=== PATIENT | female | born 1980 | race Caucasian/White ===

== ENCOUNTER 2021-08-08 13:10 | Outpatient (CLI) | payer BC, SELFPAY ==
[2021-08-08 13:56] LABS: Basophils Percent Auto 0.6 % (0.2-1.2); Eosinophils Absolute Auto 0.1 K/mm3 (0-0.3); Eosinophils Percent Auto 1.4 % (0-4.4); Hematocrit 43.7 % (37.0-47.0); Hemoglobin 14.1 g/dL (12.0-15.0); Immature Granulocyte Absolute 0.02 K/mm3 (0.00-0.031); Immature Granulocyte Percent A 0.3 % (0-0.5); Lymphocytes Absolute Auto 2.16 K/mm3 (0.9-3.2); Lymphocytes Percent Auto 34.6 % (18.3-44.2); Mean Corpuscular HGB Conc 32.3 g/dl (32-36); Mean Corpuscular Hemoglobin 31.6 pg (26-34); Mean Platelet Volume 9.7 fl (7.4-10.4); Monocytes Absolute Auto 0.4 K/mm3 (0.1-0.6); Monocytes Percent Auto 6.3 % (2.6-8.5); Neutrophils Absolute Auto 3.5 K/mm3 (1.3-6.7); Neutrophils Percent Auto 56.8 % (45.5-73.1); Platelet Count Result 258 k/mm3 (150-375); Red Blood Count 4.46 M/mm3 (4.2-5.4); Red Cell Distribution Width 12.5 % (11.5-14.5); White Blood Count 6.2 K/mm3 (4.5-10.0)
== END 2021-08-08 13:11 | disposition home or self-care (01) ==
LOC: ANHLAB 13:14
PROVIDERS: Visit Provider Obstetrics & Gynecology Gynecologic Oncology
DX: N92.0 Excessive and frequent menstruation with regular cycle (principal)
CPT/HCPCS: 36415; 85025; 86850; 86900; 86901

== ENCOUNTER 2021-08-14 00:11 | Day surgery (SDC) | payer BC, SELFPAY ==
[2021-08-07 10:58] VITALS: BMI 29.2
--- NOTE | 2021-08-07 11:05 | PC.NURSE ---
Report to the Outpatient Waiting Room, entrance under the green pavilion located off [facility], at time ___0600____ on date _08/14/21 . OR Time: __729 . - You and your visitor will be asked a series of questions to screen for COVID 19 for your protection. - Only one visitor is allowed at this time. - The patient visitor is requested to leave or wait in car when not with patient. - A mask is required within the hospital. Patients may have clear liquids (water, carbonated beverages, clear teas, apple juice) until 3 hours prior to surgery with a maximum of 20 ounces. - No food from midnight until time of surgery - Infants may have breast milk until 4 hours before surgery, formula 6 hours prior to surgery. - Children will be allowed to drink immediately following surgery. If applicable, please bring a bottle or sippy cup to assist with drinking. Juice, water, soda, and popsicles are readily available. For infants on formula, please bring formula the day of surgery. Pacifiers are allowed. Take the following medications with a SIP of water the morning of surgery: NONE Medications to discontinue per physician VIT D3 Date to take last dose___08/10/21 Please no make-up, nail hungarian, hairspray, perfume, deodorant, or body powder the day of surgery. No jewelry (including any body piercings) or valuables the day of surgery, leave them at home. Please take a shower or bath the night before, or the morning of, surgery with an antibacterial soap. Wear comfortable, loose fitting clothing. Children are encouraged to wear pajamas. - Jewelry must be removed prior to entering the operating room. Rings and piercings that are not removed may be cut off. - The hospital will not accept responsibility for valuables. - Please leave all valuables, including medications, at home the day of surgery. If you are going home after surgery, a licensed driver retraining instructor must drive you home. - NO public transportation without another adult. - We recommend that an adult stay with you for 24 hours following discharge. - We also recommend that you do not drive, make important decision, drink alcoholic beverages, or take any drugs that were not prescribed by your health care provider for at least 24 hours after your discharge time. For Pediatric surgeries, we recommend two adults accompany the child home (only one inside the building at this time). Follow any additional instructions given to you from your surgeon. If you or anyone in your household have experienced Covid symptoms in the past week, please notify your surgeon or the nurse liaison at the phone number below for possible testing. Telephone instructions given to _PATIENT___and asked if any additional questions and then verbalized understanding. Patient advised to call surgeon office or pre surgery nurse liaison [phone] if any additional questions.
--- NOTE | 2021-08-10 14:03 | WPDANESEPPF ---
Anes - Initial Pre Proc Eval Procedure: Operation Date: 08/14/21 07:30 Proposed Procedures p Diagnostic Laparoscopy, with Bilateral Salpingectomy, - Alondra Reyes DO s Hysteroscopy Dilation and Curettage with Removal of Mirena Intrauterine Device, Novasure Endometrial Ablation - Alondra Reyes DO Date/Time: 08/10/21 14:03 Surgeon: Alondra Reyes DO Pre Op Diagnosis: desires sterilization, abnormal uterine bleeding Patient Data Age: 41 Gender: F Height: 1.68 m Weight: 82 kg Allergies Allergy/AdvReac Type Severity Reaction Status Date / Time latex Allergy Mild Rash Verified 08/14/21 06:15 Home Medications Medication Instructions Recorded Confirmed Type cholecalciferol (vitamin D3) 50 50 mcg PO HS 08/07/21 08/14/21 History mcg (2,000 unit) tablet (Vitamin D3) fexofenadine 180 mg tablet 180 mg PO DAILY 08/07/21 08/14/21 History montelukast 10 mg tablet 1 tablet PO HS 08/07/21 08/14/21 History sertraline 100 mg tablet 1 tablet PO HS 08/07/21 08/14/21 History Patient hx anesthesia problems: none Family hx anesthesia problems: none Results Review: All pre-operative results and documents have been reviewed as part of the pre-operative evaluation. [facility] Past Medical History Medical History (Updated 08/14/21 @ 07:12 by Alondra Reyes DO) Anxiety Social History Social History Smoking status: Never smoker Alcohol intake: current Drinks per week: 3 Substance use: never Living arrangements: alone Anes - Eval Final PreProcedure Day of Procedure 08/10/21 14:03 Patient weight: overweight Heart: regular rate and rhythm Lungs: clear to auscultation Airway: Mallampati scale class II Neurological: alert and oriented Last oral intake: >/= 8 hours ASA classification: II Emergent: no Anesthetic plan: proceed Anesthesia type and monitoring: general GIVS and standard monitoring Results Review: All pre-operative results and documents have been reviewed as part of the pre-operative evaluation. Informed Consent: The patient's anesthetic plan and its attendant risks and benefits were discussed with the patient/family/POA. Questions were solicited and answers provided to the satisfaction of the patient/family/POA.
[2021-08-14] VITALS (10 sets, daily range): BP systolic 110–123; BP diastolic 62–78; PULSE 52–85; RESP 8–16; TEMP 36.1–36.8; O2SAT 96–100
[2021-08-14] MEDS: GABAPENTIN 300 MG CAPSULE PO (06:19)
[2021-08-14] MEDS: ACETAMINOPHEN 500 MG TABLET 1000 MG PO (06:19)
[2021-08-14] MEDS: LACTATED RINGERS 1,000 ML 30 ML IV CONT ×2 (06:42→08:48)
--- NOTE | 2021-08-14 07:10 | PM.IMHP ---
H&P: HPI History of Present Illness Date/Time: 08/14/21 07:10 Chief Complaint: I'm here for my surgery Narrative: Patient presents with heavy, regular periods, undesired fertility. Review of Systems Review of Systems: All systems reviewed & are unremarkable except as noted in HPI and below PMFSH Past Medical History Medical History (Updated 08/14/21 @ 07:12 by Alondra Reyes DO) Anxiety Social History Social History Smoking status: Never smoker Alcohol intake: current Drinks per week: 3 Substance use: never Living arrangements: alone Meds Home Medications and Allergies Home Medications Medication Instructions Recorded Confirmed Type cholecalciferol (vitamin D3) 50 50 mcg PO HS 08/07/21 08/14/21 History mcg (2,000 unit) tablet (Vitamin D3) fexofenadine 180 mg tablet 180 mg PO DAILY 08/07/21 08/14/21 History montelukast 10 mg tablet 1 tablet PO HS 08/07/21 08/14/21 History sertraline 100 mg tablet 1 tablet PO HS 08/07/21 08/14/21 History Allergies Allergy/AdvReac Type Severity Reaction Status Date / Time latex Allergy Mild Rash Verified 08/14/21 06:15 Vital Signs Vital Signs - 24 hr 08/14/21 06:56 Temperature 36.8 C Pulse Rate 68 Respiratory Rate 16 Blood Pressure 120/78 Pulse Oximetry 100 Oxygen Delivery Room Air Exam Const: General: comfortable and no acute distress Resp: Effort & Inspection: normal respiratory effort Auscultation: clear to auscultation bilaterally Cardio: Rate: regular rate Rhythm: regular rhythm GI: GI Palp: Yes Soft to palpation Auscultation: normal bowel sounds Neuro: General: gait normal Speech: normal speech Motor exam (neuro): 5/5 motor strength present throughout Extrem: General: normal to inspection Psych: Mental Status: mental status grossly normal Affect: normal affect Assessment and Plan Assessment and plan (1) Sterilization: Code(s): Z30.2 - Encounter for sterilization Status: Acute (2) Heavy menstrual bleeding: Code(s): N92.0 - Excessive and frequent menstruation with regular cycle Status: Acute Plan Diagnostic laparoscopy, bilateral salpingectomy, Mirena removal. Hysteroscopy, D&C, Novasure ablation
--- NOTE | 2021-08-14 07:13 | WPDHPUPDATE1 ---
History and Physical Update Update Date/Time: 08/14/21 07:13 History and Physical has been reviewed, including an updated exam of the patient. There are NO changes in the patient's condition. Risks, benefits, and alternatives have been discussed and questions answered. Patient agrees to proceed with procedure.
[2021-08-14] MEDS: BUPIVACAINE HCL 0.25% PF 30 ML VIAL INFILTRATE (08:13)
--- NOTE | 2021-08-14 08:44 | W.PM.PROC2 ---
Procedure Note - Detailed Date of Procedure 08/14/21 Pre-op Diagnosis desires sterilization, abnormal uterine bleeding Post-op Diagnosis Same Procedure Performed Diagnostic laparoscopy, bilateral salpingectomy, hysteroscopy, D&C, Mirena removal. Surgeon Alondra Reyes, DO Anesthesia General Indications Undesired fertility, abnormal uterine bleeding Findings Normal-appearing vulva and vaginal canal. Large cervix. Uterus sounded to 8.5 cm. The endometrial cavity was slightly retroverted and deviated to the patient's right. Internally, the left ovary contained a large simple cyst. The right ovary was normal. The uterus and fallopian tubes appeared unremarkable. The liver, gallbladder, and bowel were grossly unremarkable. Description of Procedure Patient was taken to the operating room where she was placed under general anesthesia. The patient was prepped and draped in the usual fashion in a dorsal lithotomy position. Preoperative antibiotics were indicated. A time-out was performed. The skin below the umbilicus was grasped with 2 penetrating towel clamps and the area was injected with local. A small incision was made and a Veress needle was introduced. The saline water drop test was performed to confirm intraperitoneal placement. Although positive once insufflation started, the insufflation pressure was noted to be too high so the Veress needle was removed. And then proceeded with direct entry under visualization with a 5 mm Optiview trocar. Once abdominal cavity access was gained, the CO2 insufflation was restarted and the abdomen was brought to a filling pressure of 15 mmHg. Patient was then placed in steep Trendelenburg position and the pelvic organs were visualized. CO2 insufflation was dropped to 12 mmHg. The pelvis and abdomen were surveyed as mentioned above. The left tube was elevated and was cauterized and transected off using the LigaSure. The specimen was handed off through the conference assistant port. In an identical fashion the right tube was elevated and cauterized and transected off using LigaSure. It was also passed off through the conference assistant port. During manipulation of the left tube has a small corpus luteum cyst was ruptured and there was some superficial bleeding noted. This was controlled with cautery and pressure. Reinspection of all surgical pedicles including the corpus luteum on the left ovary showed good hemostasis. All fluid and blood were suctioned out of the pelvic cavity, the CO2 was allowed to escape and the trocars were removed. Attention was then turned to the hysteroscopy portion of the procedure. The cervix was visualized with a speculum and the strings of the IUD were grasped. The IUD was removed intact. The posterior lip of the cervix was then grasped with a single-tooth tenaculum. The uterus was sequentially dilated to accommodate the hysteroscope. The scope was introduced and survey of the cavity revealed normal shaped endometrium, both tubal ostia were visualized. Measurements of the uterus and cervix were taken. The hysteroscope was then removed. Thorough curettage of the entire endometrial cavity was performed and the specimen was handed off to pathology. Uterus length 4.5 cm, cervix 4 cm. Width 2.5cm. The NovaSure device was then introduced and was activated for 100 seconds. The device was then retracted into the sleeve and removed from the uterus. The vagina was wiped cleaned of fluid and blood. The tenaculum was removed and the puncture sites noted to be hemostatic. The speculum was removed. The patient was taken out of Trendelenburg position and she was extubated. She was taken to the recovery room in stable condition. All instrument and sponge counts were correct at the conclusion of the procedure. Estimated Blood Loss 10 IV Fluids 1,300 Drains No Packing No Pathology Yes Complications No immediate complications Condition Stable Disposition PACU
[2021-08-14] MEDS: fentaNYL CITRATE INJ (*CRX) 100 MCG/2 ML VIAL 25 MCG IV PUSH (09:24)
[2021-08-14] MEDS: oxyCODONE HCL (*CRX) 5 MG TAB IR PO (09:54)
== END 2021-08-14 10:28 | disposition home or self-care (01) ==
PROVIDERS: Visit Provider Obstetrics & Gynecology Gynecologic Oncology
PROC: (CPT 49320; principal; 2021-08-14 07:30)
PROC: 0U5B8ZZ Destruction of Endometrium, Via Natural or Artificial Opening Endoscopic (ICD-10-PCS; CPT 58563; 2021-08-14 07:30)
DX: Z30.2 Encounter for sterilization (principal); Z30.432 Encounter for removal of intrauterine contraceptive device; N83.12 Corpus luteum cyst of left ovary; F41.9 Anxiety disorder, unspecified; N92.0 Excessive and frequent menstruation with regular cycle; N85.8 Other specified noninflammatory disorders of uterus
CPT/HCPCS: 58661; 58558; 58301; 88302; 88305; A9270; J1100; J2250; J2405; J2704; J2710; J3010; J7030; J7120